=== PATIENT | male | born 1930 | race Caucasian/White ===

== ENCOUNTER 2016-08-09 14:17 | Emergency (ER) | payer MEDICARE ==
[~2016-08-09] VITALS: Ht 190.5 cm; Wt 92.0 kg
[~2016-08-09 14:17] MED LIST: ACET325T PO; ALPH600C PO; AMLO5 PO; Aspirin Chew CHEW; BENT20TA PO; CHOL400D2 PO; CLOT1CRE6 TOPICAL; COMMODE 3-IN-11 MIS; DILA100C PO; ENOX40P SQ; FENT25T TD; FURO1TAB60 PO; GETGO ROLLING W1 MI1; HYDR-3516 PO; HYDR1CRE TOPICAL; LEVO.05 PO; PHEN-414 PO; POLY17S PO; PRED5TAB PO; PRESCAP5 PO; REST0.05 EACH EYE; SENN1TAB PO; THERM PO; VITA50TA3 PO; WHEEMIS3; shower chair
[2016-08-09 14:21] VITALS: BP 119/58; PULSE 100; RESP 18; TEMP 98.4; O2SAT 99
--- NOTE | 2016-08-09 14:29 | PD ---
HPI Chief Complaint: Fall Time Seen by Provider: 14:28 Travel History International Travel<30 days: No Contact w/Intl Traveler<30days: No Traveled to known affect area: No History of Present Illness HPI 85-year-old male presents the emergency department status post fall backwards while attending rehabilitation for recent T10 spine surgery by Dr. Mcdowell. Patient had metal rods placed in his thoracic region to stabilize the spine. Patient states he was at rehabilitation, when he was attempting to go to the bathroom unattended, and he fell backwards hitting the back of his head. He denies loss of consciousness or significant headache. Patient denies worsened back pain or other injury. He is allergic to gluten and smoked meat. PFSH Past Medical History Hx Anticoagulant Therapy: Yes (ASPIRIN) Arthritis: Yes Asthma: No Autoimmune Disease: No Blood Disorders: No Anxiety: No Depression: No Heart Rhythm Problems: No Cancer: Yes (COLON) Cardiac Catheterization: Yes Cardiovascular Problems: Yes High Cholesterol: No Chemotherapy: No Chest Pain: No Congestive Heart Failure: No COPD: No Cerebrovascular Accident: No Diabetes: No Diminished Hearing: No Endocrine: No Gastrointestinal Disorders: Yes (HX ULCERS) GERD: Yes Genitourinary: Yes Headaches: Yes Hepatitis: Yes (TYPE A) Hiatal Hernia: No Hypertension: Yes Immune Disorder: No Implanted Vascular Access Dvce: Yes Kidney Stones: Yes Medical other: Yes (ABDOMINAL HERNIA) Musculoskeletal: Yes Neurologic: Yes Psychiatric: No Reproductive: No Respiratory: Yes Migraines: No Myocardial Infarction: No Radiation Therapy: No Renal Failure: No Seizures: Yes Sickle Cell Disease: No Sleep Apnea: No Thyroid Disease: No Ulcer: Yes Tetanus Vaccination: > 5 Years Past Surgical History Abdominal Surgery: Yes (RESECTION,COLON APPENDIX AND GALLBLADDER REMOVED) AICD: No Appendectomy: Yes Arteriovenous Shunt: No Body Medical Devices: 2 HEART STENTS Cardiac Surgery: Yes (STENTS) Cholecystectomy: Yes Coronary Stent: Yes (X2) Ear Surgery: No Endocrine Surgery: No Eye Surgery: Yes (cataracts) Genitourinary Surgery: Yes Gynecologic Surgery: No Insulin Pump: No Joint Replacement: Yes (BILATERAL KNEES) Neurologic Surgery: Yes (subdural hematoma, 1997 FROM A FALL) Oral Surgery: Yes Pacemaker: No Thoracic Surgery: Yes Other Surgery: Yes (SEE CHART) Social History Alcohol Use: No Tobacco Use: No (QUIT 1970) Substance Use: No Allergies-Medications (Allergen,Severity, Reaction): Coded Allergies: Gluten (Verified Allergy, Severe, Cramping, 05/19/16) PATIENT STATES THAT HE IS "GLUTEN SENSITIVE" AND GETS STOMACH CRAMPS AND DIARRHEA Smoked Meats (Verified Allergy, Severe, Cramping, 05/19/16) PATIENT STATES THAT HE CANNOT EAT SMOKED MEATS OR FOOD WITH NITRATES, GETS STOMACH CRAMPS Reported Meds & Prescriptions Reported Meds & Active Scripts Active Duragesic Patch 72 HR (Fentanyl) 25 Mcg/Hr Patch 1 Patch TD Q3D Hydrocodone-Acetaminophen 5-325 mg Tab 0.5 Tab PO Q6HR PRN Acetaminophen 325 Mg Tab 650 Mg PO Q6H PRN Lasix (Furosemide) 40 Mg Tab 40 Mg PO DAILY Thera M Plus (Multivitamins/Minerals Therapeutic) 1 Tab 1 Tab PO DAILY Prednisone 5 Mg Tab 7.5 Mg PO DAILY Vitamin B-6 (Pyridoxine HCl) 50 Mg Tab 100 Mg PO DAILY Synthroid (Levothyroxine Sodium) 50 Mcg Tab 50 Mcg PO DAILY@06 Phenobarbital 32.4 Mg Tab 64.8 Mg PO BID Dilantin (Phenytoin Extended) 100 Mg Cap 200 Mg PO BID Senna Plus 8.6-50 mg (Sennosides-Docusate Sodium) 1 Tab Tab 1 Tab PO BID Polyethylene Glycol 3350 Powder (Polyethylene Glycol) 17 Gm Pow 17 Gm PO DAILY 30 Days Bentyl (Dicyclomine HCl) 20 Mg Tab 20 Mg PO TID Reported Dulcolax Supp (Bisacodyl) [address] DAILY PRN Milk of Magnesia Liq (Magnesium Hydroxide) 400 Mg/5 Ml Susp 30 Ml PO DIRECTED PRN Fleet Enema Rectal (Sodium Phosphates Rectal) 7-19 Gm/118 Ml Enem [address] DIRECTED PRN Give on the 4th day if no results from dulcolax supp Vitamin D3 (Cholecalciferol) 1,000 Unit Tab 2,000 Units PO DAILY Potassium Chloride ER (Potassium Chloride) 10 Meq Cap 10 Meq PO DAILY Aspirin Adult Low Strength (Aspirin) 81 Mg Tabdr 81 Mg PO DAILY Depakote DR (Divalproex Sodium) 125 Mg Tabdr 125 Mg PO DAILY Review of Systems Except as stated in HPI: all other systems reviewed are Neg General / Constitutional: No: Fever Eyes: No: Visual changes HENT: No: Headaches Cardiovascular: No: Chest Pain or Discomfort Respiratory: No: Shortness of Breath Gastrointestinal: No: Abdominal Pain Genitourinary: No: Dysuria Musculoskeletal: No: Pain Skin: No Rash Neurologic: No: Weakness Psychiatric: No: Depression Endocrine: No: Polydipsia Hematologic/Lymphatic: No: Easy Bruising Physical Exam Narrative GENERAL: Patient appears in no acute distress. SKIN: Warm and dry. Normal color. Normal turgor. No open wounds. HEAD: Normocephalic. No signs of trauma. Nontender with palpation. EYES: Pupils equal and round. No scleral icterus. No injection or drainage. ENT: No nasal bleeding or discharge. Mucous membranes pink and moist. NECK: Trachea midline. No JVD. No bony tenderness or step-off. Range of motion is full without tenderness. CARDIOVASCULAR: Regular rate and rhythm. No murmurs appreciated. RESPIRATORY: No accessory muscle use. Clear to auscultation. Breath sounds equal bilaterally. MUSCULOSKELETAL: Extremities without clubbing, cyanosis, or edema. No obvious deformities. Patient has limited movement of the lower extremities consistent with his history. No acute findings are noted per my exam. NEUROLOGICAL: Awake and alert. No obvious cranial nerve deficits. Motor grossly within normal limits. Five out of 5 muscle strength in the arms and legs. Normal speech. PSYCHIATRIC: Appropriate mood and affect; insight and judgment normal. Data Data Last Documented VS Vital Signs Date Time Temp Pulse Resp B/P Pulse Ox O2 Delivery O2 Flow Rate FiO2 08/09/16 14:28 99 Room Air 08/09/16 14:21 98.4 100 18 119/58 Orders Electrocardiogram (08/09/16 14:36) Complete Blood Count With Diff (08/09/16 14:36) Comprehensive Metabolic Panel (08/09/16 14:36) Act Partial Throm Time (Ptt) (08/09/16 14:36) Prothrombin Time / Inr (Pt) (08/09/16 14:36) Urinalysis - C+S If Indicated (08/09/16 14:36) Ct Brain W/O Iv Contrast(Rout) (08/09/16 14:36) Ecg Monitoring (08/09/16 14:36) Iv Access Insert/Monitor (08/09/16 14:36) Oximetry (08/09/16 14:36) Sodium Chloride 0.9% Flush (Ns Flush) (08/09/16 14:45) Spine, Thoracic-Ap/Lat/Sw(3vw) (08/09/16 14:36) Sodium Chlor 0.9% 250 Ml Inj (Ns 250 Ml (08/09/16 14:45) Urine Culture (08/09/16 15:45) Labs Laboratory Tests Test 08/09/16 08/09/16 14:40 15:45 White Blood Count 6.5 TH/MM3 Red Blood Count 3.44 MIL/MM3 Hemoglobin 11.8 GM/DL Hematocrit 34.7 % Mean Corpuscular Volume 100.9 FL Mean Corpuscular Hemoglobin 34.4 PG Mean Corpuscular Hemoglobin 34.1 % Concent Red Cell Distribution Width 16.7 % Platelet Count 192 TH/MM3 Mean Platelet Volume 8.2 FL Neutrophils (%) (Auto) 83.0 % Lymphocytes (%) (Auto) 12.0 % Monocytes (%) (Auto) 4.3 % Eosinophils (%) (Auto) 0.4 % Basophils (%) (Auto) 0.3 % Neutrophils # (Auto) 5.4 TH/MM3 Lymphocytes # (Auto) 0.8 TH/MM3 Monocytes # (Auto) 0.3 TH/MM3 Eosinophils # (Auto) 0.0 TH/MM3 Basophils # (Auto) 0.0 TH/MM3 CBC Comment DIFF FINAL Differential Comment Prothrombin Time 10.5 SEC Prothromb Time International 1.0 RATIO Ratio Activated Partial 25.2 SEC Thromboplast Time Sodium Level 139 MEQ/L Potassium Level 4.5 MEQ/L Chloride Level 104 MEQ/L Carbon Dioxide Level 27.0 MEQ/L Anion Gap 8 MEQ/L Blood Urea Nitrogen 17 MG/DL Creatinine 1.24 MG/DL Estimat Glomerular Filtration 55 ML/MIN Rate Random Glucose 178 MG/DL Calcium Level 9.0 MG/DL Total Bilirubin 0.3 MG/DL Aspartate Amino Transf 10 U/L (AST/SGOT) Alanine Aminotransferase 17 U/L (ALT/SGPT) Alkaline Phosphatase 142 U/L Total Protein 7.1 GM/DL Albumin 3.4 GM/DL Urine Color LIGHT-YELLOW Urine Turbidity CLEAR Urine pH 7.0 Urine Specific [place] 1.009 Urine Protein NEG mg/dL Urine Glucose (UA) NEG mg/dL Urine Ketones NEG mg/dL Urine Occult Blood NEG Urine Nitrite POS Urine Bilirubin NEG Urine Urobilinogen LESS THAN 2.0 MG/DL Urine Leukocyte Esterase LARGE Urine RBC 4 /hpf Urine WBC 47 /hpf Urine Calcium Oxalate Crystals RARE /hpf Urine Bacteria FEW /hpf Microscopic Urinalysis Comment CULTURE INDICATED MDM Medical Decision Making Medical Screen Exam Complete: Yes Emergency Medical Condition: Yes Medical Record Reviewed: Yes Differential Diagnosis Recent vertebral surgery. Trip and fall. Posterior head injury. Possible intracranial bleed. Syncope. Narrative Course Patient is medically stable at time of exam. Twelve-lead EKG is ordered. Labs ordered including CBC, CMP, PT PTT and INR, and urinalysis. CT of the brain is ordered without contrast. X-ray of the thoracic spine is ordered. Patient is given 250 mL normal saline bolus. CT of the brain is unremarkable for acute process per radiologist. X-rays of thoracic spine show no acute process per radiologist. CBC shows mild anemia which is baseline for the patient and actually improved from previous. PT PTT and INR within normal limits. CMP is unremarkable. Urinalysis shows probably UTI with positive nitrite and large amount of white blood cells. Patient is felt stable to be discharged home to need rehabilitation. Patient will be given Macrodantin 100 mg twice a day 7 days. Patient should follow with his primary care physician regarding his urinary tract infection. Urine culture is currently pending. Patient may return to emergency department with any worsening symptoms as needed. Diagnosis Primary Impression: Fall Qualified Code: W19.XXXA - Fall, initial encounter Additional Impressions: Impaired mobility and activities of daily living Gait abnormality Urinary tract infection Qualified Code: T83.511A - Urinary tract infection associated with indwelling urethral catheter, initial encounter Referrals: Primary Care Physician Patient Instructions: General Instructions Additional Instructions: CT of the brain is unremarkable for acute process per radiologist. X-rays of thoracic spine show no acute process per radiologist. CBC shows mild anemia which is baseline for the patient and actually improved from previous. PT PTT and INR within normal limits. CMP is unremarkable. Urinalysis shows probably UTI with positive nitrite and large amount of white blood cells. Patient is felt stable to be discharged home to need rehabilitation. Patient will be given Macrodantin 100 mg twice a day 7 days. Patient should follow with his primary care physician regarding his urinary tract infection. Urine culture is currently pending. Patient may return to emergency department with any worsening symptoms as needed. Med/Other Pt SpecificInfo: Prescription(s) given Disposition: DISCHARGE HOME Condition: Stable Cameron Jennings Aug 09, 2016 14:28
[2016-08-09] MEDS ORDERED: SODIUM CHLORIDE 0.9% FLUSH 5 ML FLUSH IVF PRN (14:45)
[2016-08-09] MEDS ORDERED: SODIUM CHLOR 0.9% 250 ML INJ 250 ML IV ONE (14:45)
--- NOTE | 2016-08-09 15:00 | PD ---
Physical Exam Date Seen by Provider: Aug 09, 2016 Narrative Patient presents for evaluation of injury sustained in a fall. Data Data Last Documented VS Vital Signs Date Time Temp Pulse Resp B/P Pulse Ox O2 Delivery O2 Flow Rate FiO2 08/09/16 14:28 99 Room Air 08/09/16 14:21 98.4 100 18 119/58 Orders Electrocardiogram (08/09/16 14:36) Complete Blood Count With Diff (08/09/16 14:36) Comprehensive Metabolic Panel (08/09/16 14:36) Act Partial Throm Time (Ptt) (08/09/16 14:36) Prothrombin Time / Inr (Pt) (08/09/16 14:36) Urinalysis - C+S If Indicated (08/09/16 14:36) Ct Brain W/O Iv Contrast(Rout) (08/09/16 14:36) Ecg Monitoring (08/09/16 14:36) Iv Access Insert/Monitor (08/09/16 14:36) Oximetry (08/09/16 14:36) Sodium Chloride 0.9% Flush (Ns Flush) (08/09/16 14:45) Spine, Thoracic-Ap/Lat/Sw(3vw) (08/09/16 14:36) Sodium Chlor 0.9% 250 Ml Inj (Ns 250 Ml (08/09/16 14:45) MDM Supervised Visit with LAKSH[facility]: Yes Narrative Course I, Dr. Madden, have reviewed the advance practice practitioner's documentation and am in agreement, met with the patient face to face, made the diagnosis, and the medical decision making was done by me. *My assessment and Findings: Patient does not appear to be in any acute distress. Condition: Stable Irma Madden MD Aug 09, 2016 15:00
--- NOTE | 2016-08-09 15:22 | RADRPT ---
EXAM DATE/TIME: 08/09/2016 15:09 [facility] COMPARISON: CT BRAIN W/O CONTRAST, June 04, 2016, 17:48. INDICATIONS : Fall today, confusion and general weakness. RADIATION DOSE: 69.15 CTDIvol (mGy) MEDICAL HISTORY : Seizures. Hepatitis A. Carcinoma, colon. SURGICAL HISTORY : Craniotomy. ENCOUNTER: Initial ACUITY: 1 day PAIN SCALE: 0/10 LOCATION: Bilateral head TECHNIQUE: Multiple contiguous axial images were obtained of the head. Using automated exposure control and adj ustment of the mA and/or kV according to patient size, radiation dose was kept as low as reasonably a chievable to obtain optimal diagnostic quality images. FINDINGS: CEREBRUM: A ventricular shunt catheter remains in place via a right frontal approach. The catheter again crosse s midline with the tip in the left lateral ventricle. The ventricular system is unchanged in appearan ce with no acute hydrocephalus. There is diffuse atrophic change again noted with sulcal and ventricu lar prominence. No evidence of midline shift, mass lesion, hemorrhage or acute infarction. No extra- axial fluid collections are seen. There is a stable area of encephalomalacia involving the left parie filomena lobe. POSTERIOR FOSSA: The cerebellum and brainstem are intact. The 4th ventricle is midline. The cerebellopontine angle i s unremarkable. EXTRACRANIAL: The visualized portion of the orbits is intact. SKULL: The calvaria is intact. No evidence of skull fracture. Status post bilateral craniotomies. CONCLUSION: 1. No acute hemorrhage or mass effect. 2. The ventricular shunt catheter remains in place with no evidence of hydrocephalus. 3. Stable encephalomalacia in the left parietal lobe. Toby Blanca MD on August 09, 2016 at 15:18 Board Certified Radiologist. This report was verified electronically.
--- NOTE | 2016-08-09 15:25 | RADRPT ---
EXAM DATE/TIME: 08/09/2016 15:06 [facility] COMPARISON: SPINE THORACIC LATERAL ONLY, June 10, 2016, 16:10. INDICATIONS : Fell onto back today MEDICAL HISTORY : None. SURGICAL HISTORY : thoracic and lumbar spines 2015 ENCOUNTER: Initial ACUITY: 1 day PAIN SCORE: 10/10 LOCATION: Bilateral T-spine FINDINGS: AP and lateral views of the thoracic spine were obtained and again demonstrate the patient is status post multilevel fusion with bilateral pedicle screws and posterior fixation rods from T7-L3 levels. T here is a stable compression fracture deformity L1 vertebral body and diffuse osteopenia. Mild to mod erate degenerative changes are again noted. There is no acute fracture or malalignment identified. Th ere is diffuse osteopenia. CONCLUSION: 1. No acute fracture or malalignment. 2. Extensive remote postsurgical changes. 3. Osteopenia and mild to moderate degenerative change. Toby Blanca MD on August 09, 2016 at 15:21 Board Certified Radiologist. This report was verified electronically.
[2016-08-09] MEDS ORDERED: DULC10SU3 PR (15:37)
[2016-08-09] MEDS ORDERED: MILKSUS PO (15:37)
[2016-08-09] MEDS ORDERED: POTA10CA PO (15:37)
[2016-08-09] MEDS ORDERED: VITA100018 PO (15:37)
[2016-08-09] MEDS ORDERED: ASPI1TAB91 PO (15:37)
[2016-08-09] MEDS ORDERED: DEPA125T PO (15:37)
[2016-08-09] MEDS ORDERED: FLEEENE3 PR (15:37)
[2016-08-09 15:45] LABS: AUTOMATED NEUTROPHIL # 5.4 TH/MM3 (1.8-7.7); BASOPHIL % 0.3 % (0.0-2.0); EOSINOPHIL % 0.4 % (0.0-4.0); HEMATOCRIT 34.7 % (39.0-51.0); HEMO FLAGS DIFF FINAL; LYMPHOCYTE # 0.8 TH/MM3 (1.0-4.8); MEAN CELL VOLUME 100.9 FL (80.0-100.0); MEAN CORPUSCULAR HEMOGLOBIN 34.4 PG (27.0-34.0); MEAN CORPUSCULAR HGB CONC 34.1 % (32.0-36.0); MONO % 4.3 % (0.0-8.0); PLATELET COUNT 192 TH/MM3 (150-450); RED BLOOD COUNT 3.44 MIL/MM3 (4.50-5.90); RED CELL DISTRIBUTION WIDTH 16.7 % (11.6-17.2); WHITE BLOOD COUNT 6.5 TH/MM3 (4.0-11.0)
[2016-08-09 16:06] LABS: ALT (GPT) 17 U/L (12-78); ANION GAP 8 MEQ/L (5-15); AST (GOT) 10 U/L (15-37); BLOOD UREA NITROGEN 17 MG/DL (7-18); CHLORIDE 104 MEQ/L (98-107); GLOMERULAR FILTRATION RATE 55 ML/MIN (>89); POTASSIUM 4.5 MEQ/L (3.5-5.1); SODIUM (NA) 139 MEQ/L (136-145)
[2016-08-09 16:08] LABS: ALKALINE PHOSPHATASE 142 U/L (45-117); TOTAL BILIRUBIN ADULT 0.3 MG/DL (0.2-1.0)
[2016-08-09 16:09] LABS: APTT (PATIENT) 25.2 SEC (24.3-30.1); PROTHROMBIN TIME - PATIENT 10.5 SEC (9.8-11.6)
[2016-08-09 16:16] LABS: BACTERIA, URINE FEW /hpf; BLOOD, URINE NEG (NEG); CALCIUM OXALATE CRYSTALS,URINE RARE /hpf; COMMENT (UR) CULTURE INDICATED; CULTURE IF INDICATED CULTURE INDICATED; GLUCOSE,URINE NEG (NEG); KETONE, URINE NEG (NEG); URINE COLOR LIGHT-YELLOW (YELLW/STRAW)
[2016-08-09 16:17] LABS: NITRITE,URINE POS (NEG)
[2016-08-09] MEDS ORDERED: MACR100C2 PO (16:30)
[2016-08-09 17:45] VITALS: BP 119/75; TEMP 98.7
--- NOTE | 2016-08-10 10:26 | EKG ---
Date Performed: 08/09/2016 Time Performed: 16:34:01 PTAGE: 85 years EKG: Atrial fibrillation Right bundle branch block ABNORMAL ECG Compared to prior tracing no sig nificant change PREVIOUS TRACING : 05/26/2016 20.58 DOCTOR: Hai Reyes Interpretating Date/Time 08/10/2016 10:24:39
== END 2016-08-09 17:50 | disposition home or self-care (01) ==
LOC: NEPA 14:17
DX: R26.89 Other abnormalities of gait and mobility (principal); N39.0 Urinary tract infection, site not specified; B96.20 Unspecified Escherichia coli [E. coli] as the cause of diseases classified elsewhere; R94.31 Abnormal electrocardiogram [ECG] [EKG]; I10 Essential (primary) hypertension; W01.198A Fall on same level from slipping, tripping and stumbling with subsequent striking against other object, initial encounter; Y92.538 Other ambulatory health services establishments as the place of occurrence of the external cause; Z79.01 Long term (current) use of anticoagulants
CPT/HCPCS: 70450; 72072; 80053; 81001; 85025; 85610; 85730; 87077; 87086; 87186; 93005

== ENCOUNTER 2016-09-20 13:12 | Emergency (ER) | payer MEDICARE ==
[~2016-09-20 13:12] MED LIST changes: -ALPH600C PO; -AMLO5 PO; +ASPI1TAB91 PO; -Aspirin Chew CHEW; -CHOL400D2 PO; -CLOT1CRE6 TOPICAL; -COMMODE 3-IN-11 MIS; +DEPA125T PO; +DULC10SU3 PR; -ENOX40P SQ; +FLEEENE3 PR; -GETGO ROLLING W1 MI1; -HYDR1CRE TOPICAL; +MACR100C2 PO; +MILKSUS PO; +POTA10CA PO; -PRESCAP5 PO; -REST0.05 EACH EYE; +VITA100018 PO; -WHEEMIS3; -shower chair
[2016-09-20 13:36] VITALS: BP 133/58; PULSE 97; RESP 20; TEMP 99; O2SAT 96
--- NOTE | 2016-09-20 13:45 | PD ---
HPI Chief Complaint: Proof Operator Problem Time Seen by Provider: 13:21 Travel History International Travel<30 days: No Contact w/Intl Traveler<30days: No Traveled to known affect area: No History of Present Illness HPI This patient is sent from a long term. He is not able to provide any useful history or review of systems. He is essentially nonverbal. assisted staff called and report reporting that his Olivera catheter was blocked and that there was some blood and pus coming out of it. He arrives via [facility] [facility] shuttle without a catheter so presumably they removed it prior to sending him here. PFSH Past Medical History Hx Anticoagulant Therapy: Yes (ASPIRIN) Arthritis: Yes Asthma: No Autoimmune Disease: No Blood Disorders: No Anxiety: No Depression: No Heart Rhythm Problems: No Cancer: Yes (COLON) Cardiac Catheterization: Yes Cardiovascular Problems: Yes High Cholesterol: No Chemotherapy: No Chest Pain: No Congestive Heart Failure: No COPD: No Cerebrovascular Accident: No Diabetes: No Diminished Hearing: No Endocrine: No Gastrointestinal Disorders: Yes (HX ULCERS) GERD: Yes Genitourinary: Yes Headaches: Yes Hepatitis: Yes (TYPE A) Hiatal Hernia: No Hypertension: Yes Immune Disorder: No Implanted Vascular Access Dvce: Yes Kidney Stones: Yes Musculoskeletal: Yes Neurologic: Yes Psychiatric: No Reproductive: No Respiratory: Yes Migraines: No Myocardial Infarction: No Radiation Therapy: No Renal Failure: No Seizures: Yes Sickle Cell Disease: No Sleep Apnea: No Thyroid Disease: No Ulcer: Yes Past Surgical History Abdominal Surgery: Yes (RESECTION,COLON APPENDIX AND GALLBLADDER REMOVED) AICD: No Appendectomy: Yes Arteriovenous Shunt: No Body Medical Devices: 2 HEART STENTS Cardiac Surgery: Yes (STENTS) Cholecystectomy: Yes Coronary Stent: Yes (X2) Ear Surgery: No Endocrine Surgery: No Eye Surgery: Yes (cataracts) Genitourinary Surgery: Yes Gynecologic Surgery: No Insulin Pump: No Joint Replacement: Yes (BILATERAL KNEES) Neurologic Surgery: Yes (subdural hematoma, 1997 FROM A FALL) Oral Surgery: Yes Pacemaker: No Thoracic Surgery: Yes Other Surgery: Yes (SEE CHART) Social History Alcohol Use: No Tobacco Use: No (QUIT 1970) Substance Use: No Allergies-Medications (Allergen,Severity, Reaction): Coded Allergies: Gluten (Verified Allergy, Severe, Cramping, 09/20/16) PATIENT STATES THAT HE IS "GLUTEN SENSITIVE" AND GETS STOMACH CRAMPS AND DIARRHEA Smoked Meats (Verified Allergy, Severe, Cramping, 09/20/16) PATIENT STATES THAT HE CANNOT EAT SMOKED MEATS OR FOOD WITH NITRATES, GETS STOMACH CRAMPS Reported Meds & Prescriptions Reported Meds & Active Scripts Active Hydrocodone-Acetaminophen 5-325 mg Tab 0.5 Tab PO Q6HR PRN Acetaminophen 325 Mg Tab 650 Mg PO Q6H PRN Lasix (Furosemide) 40 Mg Tab 40 Mg PO DAILY Thera M Plus (Multivitamins/Minerals Therapeutic) 1 Tab 1 Tab PO DAILY Prednisone 5 Mg Tab 7.5 Mg PO DAILY Vitamin B-6 (Pyridoxine HCl) 50 Mg Tab 100 Mg PO DAILY Synthroid (Levothyroxine Sodium) 50 Mcg Tab 50 Mcg PO DAILY@06 Phenobarbital 32.4 Mg Tab 64.8 Mg PO BID Senna Plus 8.6-50 mg (Sennosides-Docusate Sodium) 1 Tab Tab 1 Tab PO BID Bentyl (Dicyclomine HCl) 20 Mg Tab 20 Mg PO TID Reported Seroquel (Quetiapine Fumarate) 25 Mg Tab 12.5 Mg PO Q12HR Methenamine Hippurate 1 Gm Tab 1 Gm PO BID Melatonin 3 Mg Tab 3 Mg PO HS Dilantin (Phenytoin Extended) 100 Mg Cap 300 Mg PO DAILY IN THE AM Dilantin (Phenytoin Extended) 100 Mg Cap 200 Mg PO HS Pro-Stat (Amino Acids-Protein Hydrolysat) 1 Liq Liq 30 Ml PO DAILY Dulcolax Supp (Bisacodyl) 10 Mg Supp 10 Mg [place] DAILY PRN Milk of Magnesia Liq (Magnesium Hydroxide) 400 Mg/5 Ml Susp 30 Ml PO EVERY 3 DAYS PRN Fleet Enema Rectal (Sodium Phosphates Rectal) 7-19 Gm/118 Ml Enem 1 Applic [place] DIRECTED PRN Give on the 4th day if no results from dulcolax supp Vitamin D3 (Cholecalciferol) 1,000 Unit Tab 2,000 Units PO DAILY Potassium Chloride ER (Potassium Chloride) 10 Meq Cap 10 Meq PO DAILY Aspirin Adult Low Strength (Aspirin) 81 Mg Tabdr 81 Mg PO DAILY Depakote DR (Divalproex Sodium) 125 Mg Tabdr 125 Mg PO TID Review of Systems ROS Limitations: Clinical Condition, Altered Mental Status, Poor Historian Eyes: No: Visual changes Musculoskeletal: No: Pain Endocrine: No: Polydipsia Physical Exam Narrative GENERAL: Well-nourished, well-developed patient in no apparent distress. SKIN: Warm and dry. HEAD: Atraumatic. Normocephalic. EYES: Pupils equal and round. No scleral icterus. No injection or drainage. ENT: No nasal bleeding or discharge. Mucous membranes pink and dry NECK: Trachea midline. No JVD. No meningeal signs CARDIOVASCULAR: Regular rate and rhythm. No murmur appreciated. RESPIRATORY: No accessory muscle use. Clear to auscultation. Breath sounds equal bilaterally. GASTROINTESTINAL: Abdomen soft, non-tender, nondistended. Hepatic and splenic margins not palpable. MUSCULOSKELETAL: No obvious deformities. Suprapubic distention. Noncircumcised penis. No catheter in place . NEUROLOGICAL: Awake and alert. No obvious cranial nerve deficits. Motor grossly within normal limits. Normal speech. PSYCHIATRIC: Appropriate mood and affect; insight and judgment normal. Data Data Last Documented VS Vital Signs Date Time Temp Pulse Resp B/P Pulse Ox O2 Delivery O2 Flow Rate FiO2 09/20/16 13:36 99.0 97 20 133/58 96 Orders Urinary Catheter Insert/Apply (09/20/16 13:32) Iv Access Insert/Monitor (09/20/16 13:32) Urinalysis - C+S If Indicated (09/20/16 13:32) Complete Blood Count With Diff (09/20/16 13:32) Basic Metabolic Panel (Bmp) (09/20/16 13:32) Urine Culture (09/20/16 13:58) Labs Laboratory Tests Test 09/20/16 13:58 White Blood Count 9.2 TH/MM3 Red Blood Count 3.42 MIL/MM3 Hemoglobin 11.0 GM/DL Hematocrit 34.0 % Mean Corpuscular Volume 99.4 FL Mean Corpuscular Hemoglobin 32.0 PG Mean Corpuscular Hemoglobin 32.2 % Concent Red Cell Distribution Width 16.0 % Platelet Count 206 TH/MM3 Mean Platelet Volume 8.3 FL Neutrophils (%) (Auto) 91.9 % Lymphocytes (%) (Auto) 4.3 % Monocytes (%) (Auto) 3.7 % Eosinophils (%) (Auto) 0.1 % Basophils (%) (Auto) 0.0 % Neutrophils # (Auto) 8.4 TH/MM3 Lymphocytes # (Auto) 0.4 TH/MM3 Monocytes # (Auto) 0.3 TH/MM3 Eosinophils # (Auto) 0.0 TH/MM3 Basophils # (Auto) 0.0 TH/MM3 CBC Comment DIFF FINAL Differential Comment Urine Color YELLOW Urine Turbidity CLOUDY Urine pH 6.5 Urine Specific [place] 1.012 Urine Protein 30 mg/dL Urine Glucose (UA) NEG mg/dL Urine Ketones NEG mg/dL Urine Occult Blood MOD Urine Nitrite NEG Urine Bilirubin NEG Urine Urobilinogen LESS THAN 2.0 MG/DL Urine Leukocyte Esterase LARGE Urine RBC 38 /hpf Urine WBC /hpf Urine WBC Clumps FEW Urine Bacteria MANY /hpf Urine Mucus FEW /lpf Microscopic Urinalysis Comment CATH-CULTURE IND Sodium Level 145 MEQ/L Potassium Level 5.6 MEQ/L Chloride Level 112 MEQ/L Carbon Dioxide Level 19.4 MEQ/L Anion Gap 14 MEQ/L Blood Urea Nitrogen 102 MG/DL Creatinine 4.81 MG/DL Estimat Glomerular Filtration 12 ML/MIN Rate Random Glucose 107 MG/DL Calcium Level 8.8 MG/DL MDM Medical Decision Making Medical Screen Exam Complete: Yes Emergency Medical Condition: Yes Medical Record Reviewed: Yes Differential Diagnosis Olivera catheter malfunction, urinary retention, catheter associated Narrative Course I have reviewed the patient's electronic medical record. IV placed CBC is reasonably normal Metabolic profile is markedly abnormal. He has profound azotemia with a BUN over 100 and a creatinine of 4.8 Olivera catheter placed without difficulty. He drained out approximately 800 cc of yellow urine. Urinalysis urinalysis shows innumerable white cells suggesting infection I reviewed the case in detail with the at bedside as well as the son over the phone. They have been considering hospice for a while and hospice actually knows about them. The hospice nurse came to the emergency room to see if we are going to do formal consultation and I believe that is what the family wants and what would be best for the patient. I discussed with him that he is very dehydrated but a lot of that would be fixable with IV fluid hydration overnight. They thought about it and they don't want him hospitalized. They don't want more tests or procedures. They want to let him go with some dignity and maintain comfort measures only. I'm placing formal hospice consultation Hospice is going to do hospice care at the long term. Family understands that he likely will in a few days if he continues to not take any oral intake but they will keep him comfortable. Diagnosis Primary Impression: Dehydration, severe Additional Impressions: Acute renal failure Qualified Code: N17.9 - Acute renal failure, unspecified acute renal failure type Failure to thrive in adult Disposition: 03 DISCHARGE TO SNF Condition: Serious Wilberto Chambers MD Sep 20, 2016 13:45
[2016-09-20 14:07] LABS: AUTOMATED NEUTROPHIL # 8.4 TH/MM3 (1.8-7.7); EOSINOPHIL % 0.1 % (0.0-4.0); HEMO FLAGS DIFF FINAL; LYMPH % 4.3 % (9.0-44.0); LYMPHOCYTE # 0.4 TH/MM3 (1.0-4.8); MEAN CELL VOLUME 99.4 FL (80.0-100.0); MEAN CORPUSCULAR HGB CONC 32.2 % (32.0-36.0); MONO % 3.7 % (0.0-8.0); NEUT % 91.9 % (16.0-70.0); PLATELET COUNT 206 TH/MM3 (150-450); RED BLOOD COUNT 3.42 MIL/MM3 (4.50-5.90); WHITE BLOOD COUNT 9.2 TH/MM3 (4.0-11.0)
[2016-09-20] MEDS ORDERED: DILA100C PO ×2 (14:11)
[2016-09-20] MEDS ORDERED: METH1TAB2 PO (14:11)
[2016-09-20] MEDS ORDERED: AMINLIQ7 PO (14:11)
[2016-09-20] MEDS ORDERED: MELA0.02 PO (14:11)
[2016-09-20] MEDS ORDERED: SERO25TA PO (14:11)
[2016-09-20 14:27] LABS: BICARBONATE 19.4 MEQ/L (21.0-32.0); POTASSIUM 5.6 MEQ/L (3.5-5.1)
[2016-09-20 14:28] LABS: BACTERIA, URINE MANY /hpf; BLOOD, URINE MOD (NEG); COMMENT (UR) CATH-CULTURE IND; CULTURE IF INDICATED CATH CULTURE IND; GLUCOSE,URINE NEG (NEG); KETONE, URINE NEG (NEG); MUCUS URINE FEW /lpf (OCC); NITRITE,URINE NEG (NEG); PH, URINE 6.5 (5.0-8.5); URINE COLOR YELLOW (YELLW/STRAW)
[2016-09-20 15:00] VITALS: BP 132/86; PULSE 68; RESP 16; O2SAT 100
== END 2016-09-20 21:05 ==
LOC: NEPC 13:12 → NEDAMB 21:05
DX: E86.0 Dehydration (principal); N17.9 Acute kidney failure, unspecified; R62.7 Adult failure to thrive; Z79.01 Long term (current) use of anticoagulants; I10 Essential (primary) hypertension; B96.20 Unspecified Escherichia coli [E. coli] as the cause of diseases classified elsewhere
CPT/HCPCS: 51702; 80048; 81001; 85025; 87077; 87086; 87186